=== PATIENT | female | born 1990 | race Caucasian/White ===

== ENCOUNTER 2020-04-08 16:41 | Inpatient (IN) | payer OTHER ==
[~2020-04-08] VITALS: Ht 160 cm; Wt 100.2 kg
[2020-04-08 17:11] LABS: HEMOGLOBIN 12.2 gm/dl (12.3-15.3); RED BLOOD COUNT 3.62 M/UL (4.00-5.10); WHITE BLOOD COUNT 10.2 K/UL (4.5-11.0)
[2020-04-08] MEDS ORDERED: PRILOSEC OTC20 MG PO (18:56)
[2020-04-08] MEDS ORDERED: PRENATAL VITAM1 EAC6 PO (18:58)
[2020-04-09 18:27] LABS: HEMOGLOBIN 8.7 gm/dl (12.3-15.3)
[2020-04-10 07:32] LABS: HEMOGLOBIN 8.2 gm/dl (12.3-15.3)
[2020-04-11] MEDS ORDERED: FERROUS SULFAT325 M2 PO (12:59)
[2020-04-11] MEDS ORDERED: IBUPROFEN600 MG PO (12:59)
[2020-04-11] MEDS ORDERED: HYDROCODON-ACE1 EAC4 PO (12:59)
[2020-04-11] MEDS ORDERED: DOCUSATE SODIU100 MG PO (12:59)
[2020-04-11 13:20] LABS: HEMOGLOBIN 7.4 gm/dl (12.3-15.3)
== END 2020-04-11 18:47 | disposition home or self-care (01) | DRG 788 ==
LOC: GENOP 16:41 → OB 16:55
PROVIDERS: Obstetrics & Gynecology; ADMIT Obstetrics & Gynecology
PROC: 3E0234Z Introduction of Serum, Toxoid and Vaccine into Muscle, Percutaneous Approach (ICD-10-PCS; 2020-04-09)
PROC: 10907ZC Drainage of Amniotic Fluid, Therapeutic from Products of Conception, Via Natural or Artificial Opening (ICD-10-PCS; 2020-04-09)
PROC: 3E033VJ Introduction of Other Hormone into Peripheral Vein, Percutaneous Approach (ICD-10-PCS; 2020-04-09)
PROC: 10D00Z1 Extraction of Products of Conception, Low, Open Approach (ICD-10-PCS; principal; 2020-04-09 12:47)
PROC: 30233N1 Transfusion of Nonautologous Red Blood Cells into Peripheral Vein, Percutaneous Approach (ICD-10-PCS; 2020-04-11)
DX: O32.1XX0 Maternal care for breech presentation, not applicable or unspecified (principal); Z3A.39 39 weeks gestation of pregnancy; Z37.0 Single live birth; Z23 Encounter for immunization; O99.824 Streptococcus B carrier state complicating childbirth; O99.344 Other mental disorders complicating childbirth; F41.9 Anxiety disorder, unspecified; Z20.822 Contact with and (suspected) exposure to COVID-19; D64.9 Anemia, unspecified; O99.02 Anemia complicating childbirth
CPT/HCPCS: 36415; 36430; 81001; 82800; 85014; 85018; 85025; 86850; 86900; 86901; 86920; 90471; 90715; C9113; J0690; J1580; J2274; J2405; J2590; J7040; J7120; P9016; U0003